=== PATIENT | male | born 1935 | race Two or more races ===

== ENCOUNTER 2017-07-04 11:55 | Emergency (ER) | payer OTHER ==
[2017-07-04 12:17] VITALS: BP 144/81; PULSE 102; TEMP 97.6; BMI 25.8
[2017-07-04] MEDS ORDERED: ACETAMINOPHEN 500 MG TABLET (FP) PO ONE (13:09)
[2017-07-04] MEDS ORDERED: ACETAMINOPHEN 500 MG TABLET (FP) ONE (13:13)
--- NOTE | 2017-07-04 13:14 | PDOC ---
History of Present Illness - General Chief Complaint: Pain, Acute Stated Complaint: PAIN Time Seen by Provider: 07/04/17 12:57 History Source: Patient Exam Limitations: No Limitations - History of Present Illness Initial Comments: 07/04/17 13:30 Patient comes in with walker and complaining of left knee pain. States has had many year history of bilateral knee aching. Has never seen or received any medical attention or evaluation for this. States used to work standing and feels is probably related. Patient has had no recent exercise change, recent injury or accident. Has taken no medication for relief of same other than Tylenol. Uses sleeve to both knees and has borrowed his [id number]-tvi's walker to help assist with ambulation. Occurred: reports: other (progressive worsenin g) Severity: reports: mild, moderate Pain Location: reports: none, lower extremity (bilateral knees ) Method of Injury: Yes: unknown Modifying Factors: improves with: pain medication Associated Symptoms (Fall): denies symptoms Past History - Travel Traveled outside of the country in the last 30 days: No Close contact w/someone who was outside of country & ill: No - Past Medical History Allergies/Adverse Reactions: Allergies Allergy/AdvReac Type Severity Reaction Status Date / Time No Known Allergies Allergy Verified 07/04/17 12:12 Home Medications: Ambulatory Orders Apixaban [Eliquis] 5 mg PO ASDIR 07/04/17 Metformin HCl [Metformin HCl ER] 1,000 mg PO BID 07/04/17 Metoprolol Succinate/Hctz [Metoprolol ER-Hctz 100-12.5 mg] 1 each PO ASDIR 07/04 Oxycodone HCl/Acetaminophen [Percocet 5-325 mg Tablet] 1 - 2 tab PO Q4H PRN #10 tablet MDD 4 07/04/17 Simvastatin 20 mg PO ASDIR 07/04/17 Cardiac Disorders: Yes (Pacemaker) Diabetes: Yes HTN: Yes Hypercholesterolemia: Yes - Surgical History Cardiac Surgery: Yes (Pacemaker) - Immunization History Immunization Up to Date: Yes - Suicide/Smoking/Psychosocial Hx Smoking History: Never smoked Have you smoked in the past 12 months: No Information on smoking cessation initiated: No Hx Alcohol Use: No Drug/Substance Use Hx: No Substance Use Type: None Review of Systems - Review of Systems Able to Perform ROS?: Yes Is the patient limited [place]ian proficient: Yes Constitutional: Yes: See HPI. No: Symptoms Reported, Fever, Loss of Appetite, Malaise HEENTM: Yes: See HPI. No: Symptoms Reported ABD/GI: No: Symptoms Reported Musculoskeletal: Yes: Symptoms Reported, See HPI, Joint Pain, Joint Swelling, Joint Stiffness Integumentary: Yes: Symptoms Reported All Other Systems: Reviewed and Negative *Physical Exam - Vital Signs Last Vital Signs Temp Pulse Resp BP Pulse Ox 97.6 F 102 H 16 144/81 99 07/04/17 12:13 07/04/17 12:13 07/04/17 12:13 07/04/17 12:13 07/04/17 12:13 - Physical Exam General Appearance: Yes: Nourished, Appropriately Dressed, Apparent Distress HEENT: positive: [place], Normal ENT Inspection, TMs Normal, Pharynx Normal Neck: positive: Tender, Supple Musculoskeletal: positive: Normal Inspection, Decreased Range of Motion (I patient with nodular appearance to bilateral with tenderness that is generalized nonspecific and non-point. Patient has no ballottement, patella is not multiple but without crepitus or step-offs.). negative: Vertebral Tenderness Extremity: positive: Normal Capillary Refill, Tender, Swelling. negative: Normal Range of Motion Integumentary: positive: Normal Color, Dry, Warm, Pale Neurologic: positive: kit assembler II-XII NML intact, Fully Oriented, Alert, Normal Mood/ Affect, Normal Response, Motor Strength 5/5 ED Treatment Course - RADIOLOGY Radiology Studies Ordered: Category Date Time Status KNEE 3 POS-LEFT [RAD] Stat Radiology 07/04/17 13:08 Ordered Medical Decision Making - Medical Decision Making 07/04/17 13:13 Chronic bilateral arthritis, to rule out any significant acute pathology, however we'll refer to orthopedist for potential further treatment and possible surgical intervention. We'll send Percocet #10 tabs for severe pain. 07/04/17 14:07 *DC/Admit/Observation/Transfer Diagnosis at time of Disposition: Bilateral chronic knee pain - Discharge Dispostion Disposition: HOME Condition at time of disposition: Stable Admit: No - Referrals Referrals: Kylee Duque MD [Primary Care Provider] - Isai Severino MD [Staff Physician] - - Patient Instructions Printed Discharge Instructions: DI for Knee Pain Additional Instructions: Rest, ice to area on and off for 15 minutes 4-6 times a day Avoid heavy lifting or exercise until pain and swelling is resolved or until further directed Keep area highly elevated to reduce swelling Use splints/Zackary wrap as directed Followup with orthopedist in one to 2 days if not improving, if significantly improved may wait one week for followup with orthopedist May use Tylenol one or 2 tablets extra strength mg tablets every 6 hours as needed for pain May use Percocet for severe pain, understanding will make dizzy and sleeping. Also that Percocet has Tylenol also in at and not to overdose by too much Tylenol ingestion.
== END 2017-07-04 14:08 | disposition home or self-care (01) ==
LOC: JERFT 11:55
DX: M13.861 Other specified arthritis, right knee (principal); M13.862 Other specified arthritis, left knee; I10 Essential (primary) hypertension; E78.00 Pure hypercholesterolemia, unspecified; E11.9 Type 2 diabetes mellitus without complications; Z79.84 Long term (current) use of oral hypoglycemic drugs; Z95.0 Presence of cardiac pacemaker; Z79.01 Long term (current) use of anticoagulants
CPT/HCPCS: 73562-TC-LT; 99281-25

== ENCOUNTER 2021-01-08 04:19 | Day surgery (SDC) | payer OTHER ==
[2021-01-06 11:18] VITALS: BMI 26.1
[~2021-01-08 04:19] MED LIST: BSS (NA/CA/MG/K) BALANCED SALT SOLUTION OPHTH SOLN 15 ML BOTTLE OD ONE; LIDOCAINE HCL 1% PRESERVATIVE FREE - 30ML VIAL IO ONE; POVIDONE-IODINE 5% OPHTHALMIC PREP 30 ML SOLUTION OD ONE; TETRACAINE 0.5% OPHTH SOLN 2 ML BOTTLE TP ONE; TOBRAMYCIN/DEXAMETHASONE OPHTH. OINTMENT 1 TUBE TP ONE
[2021-01-08] MEDS ORDERED: TOBRAMYCIN/DEXAMETHASONE OPHTH. OINTMENT 1 TUBE ONE (07:10)
[2021-01-08] MEDS ORDERED: POVIDONE-IODINE 5% OPHTHALMIC PREP 30 ML SOLUTION ONE ×2 (07:10→07:13)
[2021-01-08] MEDS ORDERED: LIDOCAINE HCL/PF 1% SDV 5ML VIAL ONE (07:10)
[2021-01-08] MEDS ORDERED: EPINEPHrine/PF 1 MG/1 ML (1:1,000) AMPULE ONE ×2 (07:10→08:31)
[2021-01-08] MEDS ORDERED: CHONDROITIN SU A/HYALUR SOD 1 KIT ONE (07:11)
[2021-01-08] MEDS ORDERED: CIPROFLOXACIN HCL 0.3% OPHTH 2.5ML BOTTLE ONE (07:14)
[2021-01-08] MEDS ORDERED: TROPICAMIDE 1% OPHTH SOLN 15 ML BOTTLE ONE (07:15)
[2021-01-08] MEDS ORDERED: KETOROLAC TROMETHAMINE 0.5% EYE DROP 1 DROP DROPS ONE (07:16)
[2021-01-08] MEDS ORDERED: ACETAMINOPHEN 325 MG TABLET (FP) PO PRN (07:27)
[2021-01-08] MEDS ORDERED: CIPROFLOXACIN 0.3% EYE DROPS 5 ML BOTTLE OD ONE ×2 (07:30→07:40)
[2021-01-08] MEDS ORDERED: PHENYLEPHRINE 2.5% OPHTH SOLN 15 ML BOTTLE OP SCH (07:30)
[2021-01-08] MEDS ORDERED: KETOROLAC TROMETHAMINE 0.5% EYE DROP 1 DROP DROPS OD ONE ×2 (07:30→07:40)
[2021-01-08] MEDS ORDERED: TROPICAMIDE 1% OPHTH SOLN 15 ML BOTTLE OP SCH (07:30)
[2021-01-08] MEDS ORDERED: TROPICAMIDE 1% OPHTH SOLN 15 ML BOTTLE OD ONE (07:30)
[2021-01-08] MEDS ORDERED: KETOROLAC TROMETHAMINE 0.5% EYE DROP 1 DROP DROPS OP SCH (07:30)
[2021-01-08] MEDS ORDERED: CIPROFLOXACIN HCL 0.3% OPHTH 2.5ML BOTTLE OP SCH (07:30)
[2021-01-08] MEDS ORDERED: PHENYLEPHRINE 2.5% OPHTH SOLN 15 ML BOTTLE OD ONE ×2 (07:30→07:40)
[2021-01-08] MEDS ORDERED: TROPICAMIDE 0.5% OPHTHALMIC SOLN 15 ML BOTTLE OD ONE (07:40)
[2021-01-08] MEDS ORDERED: MIDAZOLAM HCL 2 MG/2 ML SINGLE DOSE VIAL ONE (08:24)
[2021-01-08] MEDS ORDERED: TETRACAINE 0.5% OPHTH SOLN 2 ML BOTTLE TP ONE (08:28)
[2021-01-08] MEDS ORDERED: POVIDONE-IODINE 5% OPHTHALMIC PREP 30 ML SOLUTION OD ONE (08:28)
[2021-01-08] MEDS ORDERED: LIDOCAINE HCL 1% PRESERVATIVE FREE - 30ML VIAL IO ONE (08:40)
[2021-01-08] MEDS ORDERED: CHONDROITIN SU A/HYALUR SOD 1 KIT IO ONE (08:40)
[2021-01-08] MEDS ORDERED: EPINEPHrine/PF 1 MG/1 ML (1:1,000) AMPULE SQ ONE ×2 (08:40→08:44)
[2021-01-08] MEDS ORDERED: BSS (NA/CA/MG/K) BALANCED SALT SOLUTION OPHTH SOLN 15 ML BOTTLE OD ONE (08:40)
[2021-01-08] MEDS ORDERED: TOBRAMYCIN/DEXAMETHASONE OPHTH. OINTMENT 1 TUBE TP ONE (08:58)
[2021-01-08] MEDS ORDERED: ONDANSETRON 4 MG/2 ML VIAL IVPUSH PRN (09:39)
[2021-01-08] MEDS ORDERED: LACTATED RINGERS SOLUTION 1,000 ML IV SCH (09:45)
[2021-01-08 09:54] VITALS: BP 143/71; PULSE 59; TEMP 97.9
[2021-01-08] MEDS ORDERED: acetaZOLAMIDE 250 MG TABLET PO ONE (10:00)
== END 2021-01-08 10:00 | disposition home or self-care (01) ==
LOC: JASU-SURG 04:19
PROVIDERS: ATTEND Ophthalmology
PROC: 08RJ3JZ Replacement of Right Lens with Synthetic Substitute, Percutaneous Approach (ICD-10-PCS; principal; 2021-01-08 08:30)
DX: H25.11 Age-related nuclear cataract, right eye (principal); E11.9 Type 2 diabetes mellitus without complications; I10 Essential (primary) hypertension
CPT/HCPCS: 82962

== ENCOUNTER 2021-01-22 04:27 | Day surgery (SDC) | payer OTHER ==
[2021-01-21 13:51] VITALS: BMI 26.2
[~2021-01-22 04:27] MED LIST changes: -BSS (NA/CA/MG/K) BALANCED SALT SOLUTION OPHTH SOLN 15 ML BOTTLE OD ONE; +BSS (NA/CA/MG/K) BALANCED SALT SOLUTION OPHTH SOLN 15 ML BOTTLE OS ONE; +CHONDROITIN SU A/HYALUR SOD 1 KIT IO ONE; +PHENYLEPHRINE/KETOROLAC 4 ML VIAL IO ONE; -POVIDONE-IODINE 5% OPHTHALMIC PREP 30 ML SOLUTION OD ONE; +POVIDONE-IODINE 5% OPHTHALMIC PREP 30 ML SOLUTION OS ONE; +TETRACAINE 0.5% OPHTH SOLN 2 ML BOTTLE OS ONE; -TETRACAINE 0.5% OPHTH SOLN 2 ML BOTTLE TP ONE; +TOBRAMYCIN/DEXAMETHASONE OPHTH. OINTMENT 1 TUBE OS ONE; -TOBRAMYCIN/DEXAMETHASONE OPHTH. OINTMENT 1 TUBE TP ONE
[2021-01-22] MEDS ORDERED: POVIDONE-IODINE 5% OPHTHALMIC PREP 30 ML SOLUTION ONE (07:16)
[2021-01-22] MEDS ORDERED: TOBRAMYCIN/DEXAMETHASONE OPHTH. OINTMENT 1 TUBE ONE (07:16)
[2021-01-22] MEDS ORDERED: CHONDROITIN SU A/HYALUR SOD 1 KIT ONE ×2 (07:16→10:11)
[2021-01-22] MEDS ORDERED: LIDOCAINE HCL/PF 1% SDV 5ML VIAL ONE (07:16)
[2021-01-22] MEDS ORDERED: TETRACAINE 0.5% OPHTH SOLN 2 ML BOTTLE ONE (07:17)
[2021-01-22] MEDS ORDERED: TROPICAMIDE 1% OPHTH SOLN 15 ML BOTTLE ONE (07:21)
[2021-01-22] MEDS ORDERED: CIPROFLOXACIN HCL 0.3% OPHTH 2.5ML BOTTLE ONE (07:21)
[2021-01-22] MEDS ORDERED: KETOROLAC TROMETHAMINE 0.5% EYE DROP 1 DROP DROPS ONE (07:21)
[2021-01-22] MEDS ORDERED: ACETAMINOPHEN 325 MG TABLET (FP) PO PRN (07:26)
[2021-01-22] MEDS: TROPICAMIDE 1% OPHTH SOLN 15 ML BOTTLE OP SCH ×2 (08:00→08:25)
[2021-01-22] MEDS: CIPROFLOXACIN HCL 0.3% OPHTH 2.5ML BOTTLE OP SCH ×3 (08:00→08:25)
[2021-01-22] MEDS: PHENYLEPHRINE 2.5% OPHTH SOLN 15 ML BOTTLE OP SCH ×3 (08:00→08:25)
[2021-01-22] MEDS: KETOROLAC TROMETHAMINE 0.5% EYE DROP 1 DROP DROPS OP SCH ×3 (08:00→08:25)
[2021-01-22] MEDS ORDERED: TETRACAINE 0.5% OPHTH SOLN 2 ML BOTTLE OS ONE (09:34)
[2021-01-22] MEDS ORDERED: MIDAZOLAM HCL 2 MG/2 ML SINGLE DOSE VIAL ONE (09:34)
[2021-01-22] MEDS ORDERED: POVIDONE-IODINE 5% OPHTHALMIC PREP 30 ML SOLUTION OS ONE (09:35)
[2021-01-22] MEDS ORDERED: LIDOCAINE HCL 1% PRESERVATIVE FREE - 30ML VIAL IO ONE (09:39)
[2021-01-22] MEDS ORDERED: CHONDROITIN SU A/HYALUR SOD 1 KIT IO ONE ×2 (09:39)
[2021-01-22] MEDS ORDERED: BSS (NA/CA/MG/K) BALANCED SALT SOLUTION OPHTH SOLN 15 ML BOTTLE OS ONE (09:39)
[2021-01-22] MEDS ORDERED: PHENYLEPHRINE/KETOROLAC 4 ML VIAL IO ONE (09:44)
[2021-01-22] MEDS ORDERED: TOBRAMYCIN/DEXAMETHASONE OPHTH. OINTMENT 1 TUBE OS ONE (09:57)
[2021-01-22 11:02] VITALS: TEMP 98.6
[2021-01-22 11:05] VITALS: BP 135/69; PULSE 66
== END 2021-01-22 11:05 | disposition home or self-care (01) ==
LOC: JASU-SURG 04:27
PROVIDERS: ATTEND Ophthalmology
PROC: 08RK3JZ Replacement of Left Lens with Synthetic Substitute, Percutaneous Approach (ICD-10-PCS; principal; 2021-01-22 09:30)
DX: H25.12 Age-related nuclear cataract, left eye (principal); H57.03 Miosis; H40.9 Unspecified glaucoma
CPT/HCPCS: 82962; J1097